=== PATIENT | female | born 1995 | race Caucasian/White ===

== ENCOUNTER 2018-11-26 20:42 | Inpatient (IN) | payer MEDICAID ==
[~2018-11-26] VITALS: Ht 160 cm; Wt 59.0 kg
[2018-11-26] MEDS ORDERED: SODIUM CHLORIDE 0.9% 1,000 ML IV ONE (21:28)
[2018-11-26] MEDS ORDERED: ONDANSETRON HCL 4MG/2ML INJ IV ONE (21:30)
[2018-11-26] MEDS ORDERED: MORPHINE SULFATE 4 MG/ML CPJ (NOT FOR IM USE) IV ONE (21:30)
[2018-11-26 22:31] LABS: HEMOGLOBIN. 11.3 g/dL (12.0-16.0); MEAN CORPUSCULAR HEMOGLOBIN 28.8 pg (28.0-32.0); MEAN CORPUSCULAR VOLUME 86.9 fL (81.0-99.0); MEAN PLATELET VOLUME 9.3 fl (7.4-10.4); PLATELET 252 x1000/uL (130-400); RED BLOOD CELL COUNT 3.91 mill/uL (4.2-5.4); RED CELL DISTRIBUTION WIDTH 13.3 % (11.6-14.6)
[2018-11-26 22:33] LABS: CHLORIDE 106 mEq/L (98-107)
[2018-11-26 22:38] LABS: CLARITY URINE CLEAR (CLEAR); COLOR URINE YELLOW (YELLOW); KETONES URINE 4+ (NEGATIVE); LEUKOCYTE ESTERASE URINE TRACE (NEGATIVE); NITRITE URINE NEGATIVE (NEGATIVE); OCCULT BLOOD URINE 2+ (NEGATIVE); PROTEIN URINE TRACE (NEGATIVE); SPECIFIC GRAVITY URINE 1.018 (1.005-1.030)
[2018-11-26 22:39] LABS: INR 1.1; PARTIAL THROMBOPLASTIN TIME 29.3 sec (23.4-31.0)
[2018-11-26 22:44] LABS: B-HCG QUANTITATIVE 48 mIU/mL (<3)
[2018-11-26 22:59] LABS: PLATELET ESTIMATE NORMAL
[2018-11-26] MEDS ORDERED: KCL 10MEQ/50ML PREMIX 50 ML IV ONE (23:45)
[2018-11-27] MEDS ORDERED: IOHEXOL-300 100 ML BOTTLE ONE (00:50)
[2018-11-27] MEDS ORDERED: PIPERACILLIN/TAZ 3.375G PREMIX 50 ML IV NR (01:00)
[2018-11-27] MEDS ORDERED: PIPERACILLIN/TAZOBACTAM 3.375GM/50ML PREMIX IV ONE (01:00)
[2018-11-27] MEDS ORDERED: VANCOMYCIN 1 G PREMIX 200 ML IV SCH (01:00)
[2018-11-27] MEDS ORDERED: SODIUM CHLORIDE 0.9% 1,000 ML IV ONE (01:15)
[2018-11-27] MEDS ORDERED: DIATR MEGLU/DIATRIZOATE SOLN 120ML ONE (01:29)
[2018-11-27] MEDS ORDERED: LORAZEPAM 2MG/ML CPJ IV PRN (02:00)
[2018-11-27] MEDS ORDERED: ACETAMINOPHEN 650MG SUPP PR PRN (02:00)
[2018-11-27] MEDS ORDERED: SODIUM CHLORIDE 0.9% 1,000 ML IV SCH (02:00)
[2018-11-27] MEDS ORDERED: HYDROMORPHONE HCL/PF 2MG/ML CPJ IV PRN (02:00)
[2018-11-27] MEDS ORDERED: PIPERACILLIN/TAZ 3.375G PREMIX 50 ML IV SCH (02:00)
[2018-11-27] MEDS ORDERED: PROPOFOL 200MG/20ML VIAL IV ONE ×2 (03:26→03:59)
[2018-11-27] MEDS ORDERED: LIDOCAINE HCL 1% 20ML VIAL (Pyxis) INJ ONE (03:26)
[2018-11-27] MEDS ORDERED: ROCURONIUM BROMIDE 10MG/ML VIAL 5ML IV ONE (03:27)
[2018-11-27] MEDS ORDERED: FENTANYL CITRATE/PF 50MCG/ML 2ML VIAL ONE ×2 (03:27→03:59)
[2018-11-27] MEDS ORDERED: MIDAZOLAM HCL 2 MG/2 ML VIAL ONE ×2 (03:27→04:00)
[2018-11-27] MEDS ORDERED: EPHEDRINE SULFATE 50MG/ML VIAL ONE (03:31)
[2018-11-27] MEDS ORDERED: PHENYLEPHRINE HCL 10 MG/ML 1ML (IV VIAL) IV ONE (03:32)
[2018-11-27] MEDS ORDERED: GLYCOPYRROLATE 0.2 MG/ML 2ML VIAL ONE (04:00)
[2018-11-27] MEDS ORDERED: METRONIDAZOLE 500 MG PREMIX 100 ML IV NR (04:00)
[2018-11-27] MEDS ORDERED: NEOSTIGMINE METHYLSULFATE 1MG/ML 10 ML VIAL ONE (05:43)
[2018-11-27] MEDS ORDERED: SKIN ADHESIVE 0.7 GM EA TOP ONE (06:03)
[2018-11-27] MEDS ORDERED: KETOROLAC 30MG/ML VIAL ONE (06:10)
[2018-11-27] MEDS: HYDROMORPHONE HCL/PF 2MG/ML CPJ IV PRN ×3 (06:40→11:22)
[2018-11-27] MEDS ORDERED: METOCLOPRAMIDE HCL 10MG/2ML VIAL IV PRN (06:45)
[2018-11-27] MEDS ORDERED: MEPERIDINE HCL/PF 25MG/ML CPJ IV PRN (06:45)
[2018-11-27] MEDS ORDERED: NALOXONE INJ IV PRN (07:15)
[2018-11-27] MEDS ORDERED: DIPHENHYDRAMINE INJ IV PRN (07:15)
[2018-11-27] MEDS: HYDROMORPHONE PCA 10MG/50ML IV PRN (07:45)
[2018-11-27 08:00] VITALS: BP 120/75
[2018-11-27] MEDS ORDERED: PIPERACILLIN/TAZOBACTAM 3.375 G in DEXT 5% WATER 100 ML IV SCH (08:00)
[2018-11-27 08:30] VITALS: BP 125/71
[2018-11-27] MEDS: CEFAZOLIN 2,000 MG in DEXT 5% WATER 100 ML IV SCH ×2 (11:41→21:00)
[2018-11-27] MEDS: FAMOTIDINE 20MG/2ML VIAL IV SCH ×2 (11:41→20:59)
[2018-11-27] MEDS: DEXT 5%/0.45% NACL KCL 20MEQ/L 1,000 ML IV SCH (11:41)
[2018-11-27 12:00] VITALS: BP 126/82
[2018-11-27] MEDS ORDERED: METRONIDAZOLE 500 MG PREMIX 100 ML IV SCH (12:00)
[2018-11-27 13:27] LABS: HEMATOCRIT. 30.5 % (36.0-48.0); HEMOGLOBIN. 10.3 g/dL (12.0-16.0); MEAN CORPUSCULAR HEMOGLOBIN 29.3 pg (28.0-32.0); MEAN CORPUSCULAR VOLUME 86.7 fL (81.0-99.0); MEAN PLATELET VOLUME 8.9 fl (7.4-10.4); PLATELET 248 x1000/uL (130-400); RED BLOOD CELL COUNT 3.52 mill/uL (4.2-5.4); RED CELL DISTRIBUTION WIDTH 13.8 % (11.6-14.6)
[2018-11-27 13:48] LABS: PLATELET ESTIMATE NORMAL
[2018-11-27 14:01] LABS: CHLORIDE 109 mEq/L (98-107)
[2018-11-27] MEDS: METRONIDAZOLE 500 MG PREMIX 100 ML IV SCH ×2 (14:10→18:00)
[2018-11-27 16:00] VITALS: BP 120/79
[2018-11-27] MEDS: MEPERIDINE HCL/PF 25MG/ML CPJ IM PRN ×2 (16:41→20:59)
[2018-11-27 20:00] VITALS: BP 122/76
[2018-11-28] VITALS: BP 130/80
[2018-11-28] MEDS: DEXT 5%/0.45% NACL KCL 20MEQ/L 1,000 ML IV SCH ×2 (00:32→16:23)
[2018-11-28] MEDS: METRONIDAZOLE 500 MG PREMIX 100 ML IV SCH ×5 (00:33→23:51)
[2018-11-28] MEDS: CEFAZOLIN 2,000 MG in DEXT 5% WATER 100 ML IV SCH ×3 (01:55→21:01)
[2018-11-28 04:00] VITALS: BP 125/77
[2018-11-28] MEDS: ONDANSETRON INJ IV PRN ×3 (07:32→22:45)
[2018-11-28 08:00] VITALS: BP_SYST 145; BP_SYST 99; BP_DIAS 68; BP_DIAS 72
[2018-11-28] MEDS: MEPERIDINE HCL/PF 25MG/ML CPJ IM PRN (08:21)
[2018-11-28] MEDS: FAMOTIDINE 20MG/2ML VIAL IV SCH ×2 (08:57→20:48)
[2018-11-28 13:59] LABS: HEMATOCRIT. 34.4 % (36.0-48.0); HEMOGLOBIN. 11.7 g/dL (12.0-16.0); MEAN CORPUSCULAR HEMOGLOBIN 29.1 pg (28.0-32.0); MEAN CORPUSCULAR VOLUME 85.7 fL (81.0-99.0); MEAN PLATELET VOLUME 8.5 fl (7.4-10.4); PLATELET 313 x1000/uL (130-400); RED BLOOD CELL COUNT 4.02 mill/uL (4.2-5.4); RED CELL DISTRIBUTION WIDTH 13.4 % (11.6-14.6)
[2018-11-28 14:35] LABS: PLATELET ESTIMATE NORMAL
[2018-11-28] MEDS: LORAZEPAM 2MG/ML CPJ IV PRN (16:15)
[2018-11-28] MEDS ORDERED: KCL 20MEQ/100ML PREMIX 100 ML IV NR (16:30)
[2018-11-28 20:00] VITALS: BP 133/86
[2018-11-28 21:26] LABS: *AMPHETAMINES SCREEN URINE NEGATIVE (NEGATIVE); *BARBITURATES SCREEN URINE NEGATIVE (NEGATIVE); *COCAINE SCREEN URINE NEGATIVE (NEGATIVE); PHENCYCLIDINE URINE SCREEN NEGATIVE (NEGATIVE)
[2018-11-28 21:28] LABS: METHADONE URINE SCREEN NEGATIVE (NEGATIVE)
[2018-11-28 21:33] LABS: *BENZODIAZEPINES SCREEN URINE PRESUMTIVE POSITIVE (NEGATIVE); CANNABINOID URINE SCREEN PRESUMTIVE POSITIVE (NEGATIVE); OPIATES URINE SCREEN PRESUMTIVE POSITIVE (NEGATIVE)
[2018-11-29] VITALS: BP 135/86
[2018-11-29] MEDS: CEFAZOLIN 2,000 MG in DEXT 5% WATER 100 ML IV SCH ×4 (02:40→22:02)
[2018-11-29] MEDS: METRONIDAZOLE 500 MG PREMIX 100 ML IV SCH ×2 (06:12→11:48)
[2018-11-29 06:59] LABS: HEMATOCRIT. 32.9 % (36.0-48.0); MEAN CORPUSCULAR HEMOGLOBIN 28.3 pg (28.0-32.0); MEAN CORPUSCULAR VOLUME 85.1 fL (81.0-99.0); MEAN PLATELET VOLUME 8.7 fl (7.4-10.4); PLATELET 362 x1000/uL (130-400); RED BLOOD CELL COUNT 3.87 mill/uL (4.2-5.4); RED CELL DISTRIBUTION WIDTH 13.7 % (11.6-14.6)
[2018-11-29 07:11] LABS: PHOSPHORUS 1.8 mg/dL (2.5-4.9)
[2018-11-29 08:00] VITALS: BP 124/81
[2018-11-29] MEDS: HYDROMORPHONE PCA 10MG/50ML IV PRN (08:58)
[2018-11-29] MEDS ORDERED: POTASSIUM PHOS,M-BASIC-D-BASIC 30 MMOL in DEXT 5% WATER 500 ML IV ONE (10:00)
[2018-11-29] MEDS: FAMOTIDINE 20MG/2ML VIAL IV SCH ×2 (10:03→22:02)
[2018-11-29 12:00] VITALS: BP 123/74
[2018-11-29] MEDS: MORPHINE SULFATE 2 MG/ML CPJ (NOT FOR IM USE) IV PRN ×2 (13:01→17:49)
[2018-11-29 14:10] LABS: PLATELET ESTIMATE NORMAL
[2018-11-29] MEDS: LORAZEPAM 2MG/ML CPJ IV PRN ×2 (15:40→22:47)
[2018-11-29 16:00] VITALS: BP 134/83
[2018-11-29 20:00] VITALS: BP 130/80
[2018-11-29] MEDS: ONDANSETRON HCL 4MG/2ML INJ IV PRN (22:47)
[2018-11-29] MEDS: DIPHENHYDRAMINE 50MG/ML VIAL IV PRN (23:21)
[2018-11-30] VITALS: BP 128/84
[2018-11-30] MEDS: METRONIDAZOLE 500 MG PREMIX 100 ML IV SCH ×4 (00:47→17:18)
[2018-11-30] MEDS: MORPHINE SULFATE 2 MG/ML CPJ (NOT FOR IM USE) IV PRN ×4 (01:15→16:01)
[2018-11-30] MEDS: LORAZEPAM 2MG/ML CPJ IV PRN (03:02)
[2018-11-30] MEDS: CEFAZOLIN 2,000 MG in DEXT 5% WATER 100 ML IV SCH ×3 (03:14→17:17)
[2018-11-30 04:00] VITALS: BP 121/83
[2018-11-30 06:08] LABS: CHLORIDE 101 mEq/L (98-107)
[2018-11-30 06:30] LABS: BASOPHILS % 0.3 % (0.0-2.0); EOSINOPHILS % 1.1 % (0.0-5.0); HEMATOCRIT. 28.7 % (36.0-48.0); HEMOGLOBIN. 9.6 g/dL (12.0-16.0); MEAN CORPUSCULAR HEMOGLOBIN 28.3 pg (28.0-32.0); MEAN CORPUSCULAR VOLUME 84.2 fL (81.0-99.0); MEAN PLATELET VOLUME 8.4 fl (7.4-10.4); MONOCYTES % 8.4 % (2.0-8.0); NEUTROPHILS % 81.2 % (40.0-76.0); PHOSPHORUS 2.3 mg/dL (2.5-4.9); PLATELET 368 x1000/uL (130-400)
[2018-11-30 08:00] VITALS: BP 116/75
[2018-11-30] MEDS: DEXT 5%/0.9% NACL 1,000 ML IV SCH ×2 (08:31→21:15)
[2018-11-30] MEDS: FAMOTIDINE 20MG/2ML VIAL IV SCH ×2 (09:34→21:29)
[2018-11-30] MEDS ORDERED: POTASSIUM CHLORIDE INJ 40 MEQ in DEXT 5% WATER 500 ML IV SCH (10:00)
[2018-11-30 12:00] VITALS: BP 131/82
[2018-11-30] MEDS: MORPHINE SULFATE 4 MG/ML CPJ (NOT FOR IM USE) IV PRN ×3 (19:00→23:35)
[2018-11-30] MEDS: ONDANSETRON HCL 4MG/2ML INJ IV PRN (21:17)
[2018-12-01] VITALS: BP 117/70
[2018-12-01] MEDS: METRONIDAZOLE 500 MG PREMIX 100 ML IV SCH ×4 (00:45→18:53)
[2018-12-01] MEDS: MORPHINE SULFATE 4 MG/ML CPJ (NOT FOR IM USE) IV PRN ×4 (02:17→21:33)
[2018-12-01] MEDS: ONDANSETRON HCL 4MG/2ML INJ IV PRN ×3 (02:31→21:43)
[2018-12-01] MEDS: CEFAZOLIN 2,000 MG in DEXT 5% WATER 100 ML IV SCH ×4 (02:35→18:22)
[2018-12-01 04:00] VITALS: BP 109/62
[2018-12-01 08:00] VITALS: BP 108/75
[2018-12-01] MEDS: MORPHINE SULFATE 2 MG/ML CPJ (NOT FOR IM USE) IV PRN ×3 (08:27→15:35)
[2018-12-01] MEDS: FAMOTIDINE 20MG/2ML VIAL IV SCH ×3 (09:00→21:15)
[2018-12-01 12:00] VITALS: BP 127/83
[2018-12-01] MEDS ORDERED: SODIUM BICARBONATE 4% (2.4MEQ) 5ML VIAL IV ONE (14:40)
[2018-12-01] MEDS ORDERED: LIDOCAINE HCL 1% 20ML VIAL (Pyxis) INJ ONE (14:41)
[2018-12-01 16:00] VITALS: BP 130/82
[2018-12-01 20:00] VITALS: BP 126/76
[2018-12-01] MEDS: DEXT 5%/0.9% NACL 1,000 ML IV SCH (21:16)
[2018-12-02] VITALS: BP 121/77
[2018-12-02] MEDS: METRONIDAZOLE 500 MG PREMIX 100 ML IV SCH ×4 (00:30→19:59)
[2018-12-02] MEDS: MORPHINE SULFATE 4 MG/ML CPJ (NOT FOR IM USE) IV PRN ×6 (00:31→22:51)
[2018-12-02] MEDS: ONDANSETRON HCL 4MG/2ML INJ IV PRN ×3 (03:57→20:04)
[2018-12-02 04:00] VITALS: BP 103/57
[2018-12-02] MEDS: CEFAZOLIN 2,000 MG in DEXT 5% WATER 100 ML IV SCH ×3 (05:17→18:30)
[2018-12-02 07:31] LABS: CHLORIDE 103 mEq/L (98-107)
[2018-12-02 07:41] LABS: PHOSPHORUS 2.7 mg/dL (2.5-4.9)
[2018-12-02 08:00] VITALS: BP 108/63
[2018-12-02] MEDS: FAMOTIDINE 20MG/2ML VIAL IV SCH ×2 (08:38→22:50)
[2018-12-02 12:00] VITALS: BP 115/78
[2018-12-02] MEDS ORDERED: POTASSIUM CHLORIDE INJ 40 MEQ in DEXT 5% WATER 500 ML IV SCH (12:00)
[2018-12-02] MEDS: DEXT 5%/0.9% NACL 1,000 ML IV SCH ×2 (12:26→22:51)
[2018-12-02 16:00] VITALS: BP 119/72
[2018-12-02 20:00] VITALS: BP 112/65
[2018-12-03] VITALS: BP 116/71
[2018-12-03] MEDS: METRONIDAZOLE 500 MG PREMIX 100 ML IV SCH ×5 (00:53→23:51)
[2018-12-03 04:00] VITALS: BP 115/69
[2018-12-03] MEDS: CEFAZOLIN 2,000 MG in DEXT 5% WATER 100 ML IV SCH ×3 (04:33→19:40)
[2018-12-03] MEDS: MORPHINE SULFATE 4 MG/ML CPJ (NOT FOR IM USE) IV PRN ×5 (04:34→22:43)
[2018-12-03] MEDS: FAMOTIDINE 20MG/2ML VIAL IV SCH ×2 (08:35→21:57)
[2018-12-03] MEDS: DEXT 5%/0.9% NACL 1,000 ML IV SCH ×2 (08:36→20:00)
[2018-12-03] MEDS: ONDANSETRON HCL 4MG/2ML INJ IV PRN ×2 (08:57→22:56)
[2018-12-03 11:03] LABS: HEMATOCRIT 30.9 % (36.0-48.0); HEMOGLOBIN 10.3 g/dL (12.0-16.0); MEAN CORPUSCULAR HEMOGLOBIN 28.7 pg (28.0-32.0); MEAN CORPUSCULAR VOLUME 85.7 fL (81.0-99.0); PLATELET 485 x1000/uL (130-400)
[2018-12-03 11:25] LABS: CHLORIDE 102 mEq/L (98-107)
[2018-12-03 11:39] LABS: PHOSPHORUS 2.7 mg/dL (2.5-4.9)
[2018-12-03] MEDS ORDERED: POTASSIUM CHLORIDE INJ 40 MEQ in DEXT 5% WATER 500 ML IV NR (14:00)
[2018-12-03 20:00] VITALS: BP 111/76
[2018-12-04] VITALS: BP 117/69
[2018-12-04] MEDS: CEFAZOLIN 2,000 MG in DEXT 5% WATER 100 ML IV SCH ×3 (02:27→17:05)
[2018-12-04] MEDS: MORPHINE SULFATE 4 MG/ML CPJ (NOT FOR IM USE) IV PRN ×3 (03:20→12:20)
[2018-12-04 04:00] VITALS: BP 97/64
[2018-12-04] MEDS: METRONIDAZOLE 500 MG PREMIX 100 ML IV SCH ×3 (06:11→17:51)
[2018-12-04 07:21] LABS: CHLORIDE 104 mEq/L (98-107)
[2018-12-04 07:31] LABS: PHOSPHORUS 3.3 mg/dL (2.5-4.9)
[2018-12-04 08:00] VITALS: BP 110/68
[2018-12-04] MEDS: FAMOTIDINE 20MG/2ML VIAL IV SCH (08:21)
[2018-12-04] MEDS: ONDANSETRON HCL 4MG/2ML INJ IV PRN ×3 (08:21→16:17)
[2018-12-04 12:00] VITALS: BP 111/71
[2018-12-04] MEDS: HYDROCODONE/ACETAMINOPHEN 5/325MG TABLET PO PRN ×2 (16:18→20:33)
[2018-12-04] MEDS: DEXT 5%/0.9% NACL 1,000 ML IV SCH (16:23)
[2018-12-04 20:00] VITALS: BP 121/74
[2018-12-04] MEDS: FAMOTIDINE 20MG TABLET PO SCH (20:34)
[2018-12-05] VITALS: BP 115/75
[2018-12-05 04:00] VITALS: BP 104/67
[2018-12-05] MEDS: HYDROCODONE/ACETAMINOPHEN 5/325MG TABLET PO PRN ×2 (05:28→11:16)
[2018-12-05] MEDS: DIPHENHYDRAMINE 50MG/ML VIAL IV PRN ×2 (05:49→12:58)
[2018-12-05 08:00] VITALS: BP 111/68
[2018-12-05] MEDS: FAMOTIDINE 20MG TABLET PO SCH (08:43)
[2018-12-05 12:00] VITALS: BP 107/61
[2018-12-05 13:11] VITALS: BP 111/78
== END 2018-12-05 15:30 | disposition home or self-care (01) | DRG 231 ==
LOC: ER 20:42 → CVICU 11-27 01:12 → ENRESERV 11-27 02:56 → 6EST 11-27 08:44
PROVIDERS: ADMIT Internal Medicine; ATTEND Internal Medicine
PROC: 0D1N0Z4 Bypass Sigmoid Colon to Cutaneous, Open Approach (ICD-10-PCS; 2018-11-27)
PROC: 0DBN0ZZ Excision of Sigmoid Colon, Open Approach (ICD-10-PCS; 2018-11-27)
PROC: 02HV33Z Insertion of Infusion Device into Superior Vena Cava, Percutaneous Approach (ICD-10-PCS; principal; 2018-12-01)
PROC: B5181ZA Fluoroscopy of Superior Vena Cava using Low Osmolar Contrast, Guidance (ICD-10-PCS; 2018-12-01)
PROC: B548ZZA Ultrasonography of Superior Vena Cava, Guidance (ICD-10-PCS; 2018-12-01)
DX: K63.1 Perforation of intestine (nontraumatic) (principal); K65.9 Peritonitis, unspecified; E83.39 Other disorders of phosphorus metabolism; K56.7 Ileus, unspecified; D64.9 Anemia, unspecified; E87.6 Hypokalemia; Z90.721 Acquired absence of ovaries, unilateral
CPT/HCPCS: 36415; 36573; 74018; 74176; 74177; 76830; 76856; 80048; 80051; 80305; 81003; 82962; 83735; 84100; 84702; 85027; 86850; 86900; 88307; 93005; 96365; 96375; 97110; 97116; 97162; 99291; C1725; J0690; J1170; J1200; J1885; J2060; J2175; J2250; J2270; J2370; J2405; J2543; J2704; J2710; J3010; J3370; J3480; J3490; J7030; J7042; J7060; Q9963; Q9967

== ENCOUNTER → 2018-12-19 | Outpatient (CLI) | payer MEDICAID ==
[~2018-12-19] MED LIST: DIATR MEGLU/DIATRIZOATE SOLN 120ML ONE
== END | disposition home or self-care (01) ==
LOC: RAD 09:05
PROVIDERS: ATTEND Surgery
DX: Z90.49 Acquired absence of other specified parts of digestive tract (principal)
CPT/HCPCS: 74270; Q9963